=== PATIENT | female | born 1970 | race Caucasian/White ===

== ENCOUNTER → 2022-07-21 | Outpatient (CLI) | payer OTHER | END | disposition home or self-care (01) | LOC: RAH 09:08 | PROVIDERS: ATTEND Obstetrics & Gynecology | DX: Z12.31 Encounter for screening mammogram for malignant neoplasm of breast (principal) | CPT/HCPCS: 77067 ==

== ENCOUNTER 2023-11-10 11:12 | Emergency (ER) | payer OTHER ==
[~2023-11-10] VITALS: Ht 182.9 cm; Wt 72.6 kg
[2023-11-10 12:19] VITALS: BP 115/78; PULSE 83; RESP 18; O2SAT 100
== END 2023-11-10 12:39 | disposition home or self-care (01) ==
LOC: EDH 11:12
DX: M79.662 Pain in left lower leg (principal); Z88.8 Allergy status to other drugs, medicaments and biological substances
CPT/HCPCS: 93971

== ENCOUNTER 2023-12-15 16:59 | Emergency (ER) | payer OTHER ==
[~2023-12-15] VITALS: Ht 182.9 cm; Wt 70.3 kg
[2023-12-15 18:40] VITALS: BP 131/89; PULSE 99; RESP 20; O2SAT 99
[2023-12-15] MEDS: SOLU-MEDROL 125MG VIAL IM ONE (19:26)
[2023-12-15] MEDS: HYDROCODONE/ACETAMINOPHEN 5/325 MG TAB PO ONE ×2 (19:26)
[2023-12-15 19:40] LABS: BASOPHILS # (AUTO) 0.05 K/uL (0.00-0.20); EOSINOPHILS % (AUTO) 1.9 % (0.0-8.0); IMMATURE GRANULOCYTE ABSOLUTE 0.01 K/uL (0-1); LYMPHOCYTES # (AUTO) 1.8 K/uL (1.0-4.8); LYMPHOCYTES % (AUTO) 35.2 % (21.0-51.0); MEAN CORPUSCULAR HEMOGLOBIN 31.4 pg (27.0-33.0); MEAN CORPUSCULAR HGB CONC 34.8 g/dL (32.0-36.0); MEAN CORPUSCULAR VOLUME 90.3 fL (79-99); MONOCYTES # (AUTO) 0.6 K/uL (0.1-1.0); MONOCYTES % (AUTO) 11.2 % (3.0-13.0); NEUTROPHILS # (AUTO) 2.6 K/uL (1.8-7.7); NEUTROPHILS % (AUTO) 50.5 % (40.0-77.0); PLATELET COUNT (AUTO) 247 K/uL (130-400); RED BLOOD CELL COUNT(AUTO) 4.43 MIL/uL (4.00-5.50); RED CELL DISTRIBUTION WIDTH 11.5 % (11.0-15.5); WHITE BLOOD COUNT (AUTO) 5.2 K/uL (4.8-10.8)
[2023-12-15 19:57] LABS: ALBUMIN 3.7 g/dL (3.5-5.0); BILIRUBIN,TOTAL 0.5 mg/dL (0.2-1.0); CREATININE 0.7 mg/dL (0.5-1.0); POTASSIUM 4.6 mmol/L (3.5-5.1)
[2023-12-15] MEDS ORDERED: ACET-2079 PO (20:23)
[2023-12-15] MEDS ORDERED: METH4TAB3 PO (20:23)
== END 2023-12-15 20:59 | disposition home or self-care (01) ==
LOC: EDH 16:59
DX: S86.911A Strain of unspecified muscle(s) and tendon(s) at lower leg level, right leg, initial encounter (principal); F41.9 Anxiety disorder, unspecified; Z98.890 Other specified postprocedural states; Z90.710 Acquired absence of both cervix and uterus; X58.XXXA Exposure to other specified factors, initial encounter; Y93.89 Activity, other specified; Y92.89 Other specified places as the place of occurrence of the external cause; Y99.8 Other external cause status
CPT/HCPCS: 99285; 93971; 80053; 85025; 36415; 96372; J2919

== ENCOUNTER → 2023-12-23 | Outpatient (CLI) | payer OTHER ==
[~2023-12-23] MED LIST: ACET-2079 PO; METH4TAB3 PO
== END | disposition home or self-care (01) ==
LOC: RAH 13:48
PROVIDERS: ATTEND Family Medicine
DX: M17.12 Unilateral primary osteoarthritis, left knee (principal); M25.462 Effusion, left knee; M25.562 Pain in left knee
CPT/HCPCS: 73721

== ENCOUNTER → 2024-01-05 | Outpatient (CLI) | payer OTHER | END | disposition home or self-care (01) | LOC: RAH 10:45 | PROVIDERS: ATTEND Family Medicine | DX: M47.816 Spondylosis without myelopathy or radiculopathy, lumbar region (principal); M51.37 Other intervertebral disc degeneration, lumbosacral region; M48.07 Spinal stenosis, lumbosacral region; M51.27 Other intervertebral disc displacement, lumbosacral region | CPT/HCPCS: 72148 ==

== ENCOUNTER 2024-04-05 14:20 | Emergency (ER) | payer OTHER ==
[~2024-04-05] VITALS: Ht 182.9 cm; Wt 69.9 kg
[2024-04-05 14:43] VITALS: BP 115/65; PULSE 90; RESP 16; TEMP 98.1; O2SAT 98
[2024-04-05] MEDS ORDERED: NAPR-1196 PO (15:20)
[2024-04-05] MEDS: ketOROlac 60 MG VIAL (30MG/ML) IM STA (15:37)
== END 2024-04-05 16:06 | disposition home or self-care (01) ==
LOC: EDH 14:20
DX: S80.11XA Contusion of right lower leg, initial encounter (principal); E03.9 Hypothyroidism, unspecified; Z90.89 Acquired absence of other organs; F41.9 Anxiety disorder, unspecified; Z79.899 Other long term (current) drug therapy; Z88.8 Allergy status to other drugs, medicaments and biological substances; Z98.890 Other specified postprocedural states; W54.1XXA Struck by dog, initial encounter; Y93.89 Activity, other specified; Y92.89 Other specified places as the place of occurrence of the external cause; Y99.8 Other external cause status
CPT/HCPCS: 99284; 73600; 73590; 96372; J1885

== ENCOUNTER → 2025-04-28 | Outpatient (CLI) | payer OTHER ==
[~2025-04-28] MED LIST changes: +NAPR-1196 PO
--- NOTE | 2025-04-30 06:43 | HMCIMG ---
BILATERAL BREAST ULTRASOUND: CLINICAL HISTORY: Follow-up for mammogram from 09/13/2024 Finding: Real-time examination of the both breasts demonstrates heterogeneous echotexture throughout both the breasts without evidence of focal solid or cystic masses. There are benign-appearing bilateral axillary lymph node on the right it measures 1.0 x 0.6 x 0.9 cm. On the left it measures 1.1 x 0.5 x 0 9 cm. IMPRESSION: Moderately heterogeneously dense breast with no solid or cystic lesion seen. I would recommend annual mammography with tomography with bilateral breast sonogram. FINAL ASSESSMENT: ACR: BI-RAD - 1. Negative Mammogram.
== END | disposition home or self-care (01) ==
LOC: RAH 07:43
PROVIDERS: ATTEND Obstetrics & Gynecology
DX: R92.333 Mammographic heterogeneous density, bilateral breasts (principal)